=== PATIENT | male | born 1970 | race Caucasian/White ===

== ENCOUNTER 2022-03-05 13:52 | Inpatient (IN) | payer MEDICARE ==
[~2022-03-05] VITALS: Ht 170.2 cm; Wt 108.0 kg
[~2022-03-05 13:52] MED LIST: CELLCEPT500 MG PO; COREG12.5 MG PO; MAGOX 400400 MG PO; NEURONTIN300 MG PO; OXYCONTIN10 MG PO; PHOSLO 667 MG667 MG PO; PROGRAF1 MG PO; PROTONIX40 MG PO; REMERON15 MG PO; ROBAXIN500 MG PO; ROXICODONE5 MG PO; TYLENOL 325MG325 MG PO; VALCYTE450 MG PO; VITAMIN D250000 UNIT PO; ZOFRAN4 MG PO
[2022-03-05 15:14] LABS: WHITE BLOOD COUNT 4.3 K/UL (4.5-11.0)
[2022-03-05 15:49] LABS: HEMOGLOBIN 6.2 gm/dl (14.0-17.5)
[2022-03-05] MEDS ORDERED: CALCITRIOL0.5 MCG PO (17:50)
[2022-03-05] MEDS ORDERED: FOSRENOL500 MG PO (17:51)
[2022-03-05] MEDS ORDERED: CYCLOBENZAPRINE10 MG PO (17:52)
[2022-03-05] MEDS ORDERED: DULOXETINE HCL60 MG PO (17:52)
[2022-03-05] MEDS ORDERED: PROZAC10 MG PO (17:53)
[2022-03-05] MEDS ORDERED: HYDROXYZINE HCL25 MG PO (17:54)
[2022-03-05] MEDS ORDERED: ISOSORBIDE MONO60 MG PO (17:54)
[2022-03-05] MEDS ORDERED: CLONIDINE HCL0.2 MG PO (17:55)
[2022-03-05] MEDS ORDERED: HYDRALAZINE HCL50 MG PO (17:55)
[2022-03-05] MEDS ORDERED: HYDRALAZINE HCL25 MG PO (17:56)
[2022-03-05] MEDS ORDERED: NIFEDIPINE ER60 M1 PO (17:56)
[2022-03-05] MEDS ORDERED: ATORVASTATIN CA40 MG PO (17:57)
[2022-03-05] MEDS ORDERED: CLOPIDOGREL75 MG PO (17:57)
[2022-03-05] MEDS ORDERED: RENAPLEX-D TAB1 EACH PO (17:58)
[2022-03-05] MEDS ORDERED: HUMALOG100 UNIT/3 SC (17:59)
[2022-03-05] MEDS ORDERED: LEVEMIR FL100 UNIT/1 SQ (17:59)
[2022-03-06 03:49] LABS: RED BLOOD COUNT 2.01 M/UL (4.20-5.50)
[2022-03-06 04:12] LABS: HEMOGLOBIN 6.2 gm/dl (14.0-17.5)
[2022-03-06 15:10] LABS: WHITE BLOOD COUNT 4.3 K/UL (4.5-11.0)
[2022-03-06 15:14] LABS: HEMOGLOBIN 9.2 gm/dl (14.0-17.5); RED BLOOD COUNT 2.93 M/UL (4.20-5.50)
[2022-03-07 02:36] LABS: HEMOGLOBIN 8.7 gm/dl (14.0-17.5); RED BLOOD COUNT 2.85 M/UL (4.20-5.50); WHITE BLOOD COUNT 4.1 K/UL (4.5-11.0)
[2022-03-07 09:14] LABS: HBSAG SCREEN Negative (Negative); HCV AB 0.1 (0.0-0.9); HEP A AB, IGM Negative (Negative); HEP B CORE AB, IGM Negative (Negative)
[2022-03-08 04:33] LABS: HEMOGLOBIN 8.6 gm/dl (14.0-17.5); RED BLOOD COUNT 2.85 M/UL (4.20-5.50)
== END 2022-03-08 14:30 | disposition home or self-care (01) | DRG 640 ==
LOC: ER1 13:52 → CDU 16:57 → PROG CARE 16:57
PROVIDERS: Internal Medicine; Internal Medicine Nephrology; Otolaryngology; Physician Assistant; ADMIT Internal Medicine Infectious Disease
PROC: 30233N1 Transfusion of Nonautologous Red Blood Cells into Peripheral Vein, Percutaneous Approach (ICD-10-PCS; principal; 2022-03-05)
DX: E87.70 Fluid overload, unspecified (principal); N18.6 End stage renal disease; I12.0 Hypertensive chronic kidney disease with stage 5 chronic kidney disease or end stage renal disease; D61.818 Other pancytopenia; Z94.4 Liver transplant status; J96.11 Chronic respiratory failure with hypoxia; I45.10 Unspecified right bundle-branch block; Z96.611 Presence of right artificial shoulder joint; Z96.612 Presence of left artificial shoulder joint; R16.1 Splenomegaly, not elsewhere classified; E11.22 Type 2 diabetes mellitus with diabetic chronic kidney disease; E87.5 Hyperkalemia; E78.5 Hyperlipidemia, unspecified; E83.42 Hypomagnesemia; I25.10 Atherosclerotic heart disease of native coronary artery without angina pectoris; E66.01 Morbid (severe) obesity due to excess calories; Z95.1 Presence of aortocoronary bypass graft; Z95.5 Presence of coronary angioplasty implant and graft; Z90.49 Acquired absence of other specified parts of digestive tract; Z80.1 Family history of malignant neoplasm of trachea, bronchus and lung; Z79.899 Other long term (current) drug therapy; Z79.4 Long term (current) use of insulin; Z91.15 Patient's noncompliance with renal dialysis; Z68.37 Body mass index [BMI] 37.0-37.9, adult; Z99.2 Dependence on renal dialysis
CPT/HCPCS: 36415; 36600; 71045; 80048; 80053; 80074; 82550; 82553; 82803; 82962; 83036; 83735; 83880; 84484; 85025; 86850; 86900; 86901; 86920; 90935; 90937; 93005; 94760; 97161; 99285; G0378; J0360; J0610; J2270; J2405; J2550; J3475; J7507; P9016